=== PATIENT | female | born 1940 | race Asian ===

== ENCOUNTER 2017-10-01 09:54 | Emergency (ER) | payer OTHER, MEDICAID ==
[~2017-10-01] VITALS: Ht 144.8 cm; Wt 45.4 kg
[2017-10-01 09:59] VITALS: BP_SYST 147
--- NOTE | 2017-10-01 10:03 | NUR ---
Patient to ER bed 8 to gown for evaluation. Side rails up. Report given to April TRINIDAD.
--- NOTE | 2017-10-01 10:11 | NUR ---
ER at bedside examining patient.
--- NOTE | 2017-10-01 10:13 | NUR ---
CHEST XRAY ORDERED AND DONE.
[2017-10-01] MEDS: IPRATROPIUM/ALBUTEROL SULFATE 3 ML AMPUL.NEB INH ONE (12:07)
--- NOTE | 2017-10-01 12:07 | NUR ---
nebulizer treatment being used by pt.
[2017-10-01 12:40] VITALS: BP_SYST 145
--- NOTE | 2017-10-01 12:40 | NUR ---
Patient given written and verbal discharge instructions and verbalizes understanding. ER MD discussed with patient the results and treatment provided. Patient in stable condition. ID arm band removed. Rx of tessalon perles and prednisone given. Patient educated on pain management and to follow up with PMD. Pain Scale 0. Opportunity for questions provided and answered.
== END 2017-10-01 12:40 | disposition home or self-care (01) ==
LOC: SED 09:54
DX: J44.1 Chronic obstructive pulmonary disease with (acute) exacerbation (principal); Z88.8 Allergy status to other drugs, medicaments and biological substances
CPT/HCPCS: 71045; 94640; 99283